=== PATIENT | male | born 1940 | race Caucasian/White ===

== ENCOUNTER 2023-12-05 01:18 | Emergency (ER) | payer MEDICARE, OTHER, SELFPAY ==
[2023-12-05] VITALS (16 sets, daily range): BP systolic 143–236; BP diastolic 78–115; PULSE 89–117; RESP 14–21; TEMP 36.4; O2SAT 94–99; BMI 29.5
--- NOTE | 2023-12-05 01:16 | ECG_ITS ---
[employer] [facility] Test Date: 2023-12-05 Pat Name: Reggie Mcfadden Department: Room: Gender: Male Digital [employer] Reporter: : 1940 Requested By: Jonathan Hameed Order Number: [id number] Myrna MD: Shane Marie M.D. Measurements Intervals Martin Rate: 103 P: 54 OR: 194 QRS: 81 QRSD: 114 T: 55 QT: 347 QTc: 455 Interpretive Statements SINUS TACHYCARDIA MODERATE INTRAVENTRICULAR CONDUCTION DELAY [110+ ms QRS DURATION] ST DEVIATION AND MODERATE T-WAVE ABNORMALITY, CONSIDER INFERIOR ISCHEMIA [-0.1+ mV T-WAVE IN II/aVF] No previous ECG available for comparison Electronically Signed On 12-05-2023 23:04:34 CDT by Shane Marie M.D. [email or web address]
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
[2023-12-05] MEDS: ondansetron 2 mg/ML SDV 2 mL 8 MG IVP (01:29)
[2023-12-05] MEDS: morphine 4 mg/mL SDV 1 mL IVP ×2 (01:30→03:02)
[2023-12-05 01:34] LABS: Basophils # 0.1 10^3/uL (0.0-0.1); Basophils % 0.4 %; Eosinophils # 0.1 10^3/uL (0.0-0.8); Eosinophils % 0.8 %; Hematocrit 35.8 % (37-53); Lymphocytes # 2.3 10^3/uL (0.8-4.8); Mean Corpuscular HGB Conc 33.5 g/dL (30-55); Mean Corpuscular Hemoglobin 32.4 pg (27-33); Mean Corpuscular Volume 96.8 fl (82-101); Mean Platelet Volume 11.1 fL (7.4-10.4); Monocytes % 7.5 %; Neutrophils # 9.92 10^3/uL (1.8-7.7); Neutrophils % 73.2 %; Nucleated Red Blood Cells % 0 %; Platelet Count 168 10^3/cmm (157-399); Red Cell Distribution Width 13.5 % (12.1-15.1); White Blood Count 13.56 10^3/uL (3.29-11.43)
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
[2023-12-05 01:49] LABS: Bacteria Urine None Seen /hpf; Hyaline Casts Urine 2.46 /lpf; RBC Urine 0-2 /hpf (0-2); Squamous Epithelial Cell Urine 0-5 /hpf (0-5); WBC Urine 0-5 /hpf (0-5)
[2023-12-05 01:50] LABS: INR 1.15 (0.8-1.2)
[2023-12-05 01:55] LABS: Add Urine Microscopic? YES; Bilirubin Urine Negative (Negative); Blood Urine Negative (Negative); Glucose Urine UA 3+ (Normal); Ketones Urine Trace (Negative); Leukocyte Esterase Urine Negative (Negative); Nitrate Urine Negative (Negative); Protein Urine 1+ (Negative); Specific Gravity, Urine 1.028 (1.005-1.030); Urine Appearance Clear (CLEAR); Urine Color Yellow (Yellow); pH Urine 5.5 (5-7)
[2023-12-05 01:57] LABS: Troponin(5th) Baseline 28 ng/L (0-15)
[2023-12-05 02:00] LABS: Alanine Aminotransferase 39 U/L (0-41); Albumin Level 4.2 g/dL (3.5-5.2); Alkaline Phosphatase 125 U/L (40-130); Aspartate Amino Transferase 68 U/L (0-40); Blood Urea Nitrogen 31 mg/dL (8-23); Calcium 9.4 mg/dL (8.5-10.5); Carbon Dioxide 19 mmol/L (22-29); Chloride 100 mmol/L (98-107); Creatinine Clr Calc Pharmacy 47.0433; Globulin 2.2 g/dL (1.3-4.6); Glucose 358 mg/dL (65-115); Magnesium 2.1 mg/dL (1.7-2.3); Osmolality Calculated 301 mOsm/kg (285-295); Sodium 135 mmol/L (136-145); Total Bilirubin 0.9 mg/dL (0.15-1.2); Total Protein 6.4 g/dL (6.6-8.7)
[2023-12-05 02:01] LABS: Lactic Sepsis W/Reflex 3.8 mmol/L (0.5-2.2)
[2023-12-05 02:02] LABS: Anion Gap 20.6 (5-19); Potassium 4.6 mmol/L (3.5-5.1)
[2023-12-05 02:03] LABS: Creatine Phosphokinase 482 U/L (39-308)
[2023-12-05 03:20] LABS: Reflex Lactate Order REFLEX LACTIC ORDERD
--- NOTE | 2023-12-05 03:51 | PC.NURSE ---
This RN spoke to pt and daughter on phone. provided these two contacts with phone number to contact [facility], location of patient going to [facility], and condition. both verbalized understanding of situation and had no further questions.
[2023-12-05 03:55] LABS: Troponin 5 2HR 26.61 ng/L (0-15)
[2023-12-05 03:59] LABS: Troponin 5 2HR Delta -1.39 ABS# (0-10)
== END 2023-12-05 04:18 | disposition short-term general hospital (02) ==
PROVIDERS: Emergency Provider Emergency Medicine
DX: S12.100A Unspecified displaced fracture of second cervical vertebra, initial encounter for closed fracture (principal); S42.102A Fracture of unspecified part of scapula, left shoulder, initial encounter for closed fracture; S42.002A Fracture of unspecified part of left clavicle, initial encounter for closed fracture; V68.5XXA Driver of heavy transport vehicle injured in noncollision transport accident in traffic accident, initial encounter; Y92.410 Unspecified street and highway as the place of occurrence of the external cause; S22.029A Unspecified fracture of second thoracic vertebra, initial encounter for closed fracture; S22.43XA Multiple fractures of ribs, bilateral, initial encounter for closed fracture
CPT/HCPCS: 70450; 71250; 72125; 74176; 80053; 81001; 82550; 83605; 83735; 84484; 85025; 85610; 93005; 96374; 96375; 96376; 99285; J2270; J2405